=== PATIENT | female | born 1985 | race Caucasian/White ===

== ENCOUNTER 2016-12-17 17:31 | Emergency (ER) | payer OTHER ==
[~2016-12-17] VITALS: Ht 162.6 cm; Wt 110.0 kg
[~2016-12-17 17:31] MED LIST: IBUP-1152 PO; PREN1TAB69 PO
[2016-12-17 17:34] VITALS: BP 145/88; PULSE 118; RESP 22; O2SAT 99
--- NOTE | 2016-12-17 17:58 | ED.REPORT ---
HPI-Abd Pain F Under 39 Date of Service Dec 17, 2016 ED Provider: Dr. Kuldeep Mathis D.O. A healthy 31 year old female presents to the ED with waxing and waning lower left-sided pleuritic chest pain onset 1100 this morning. The pain began in the epigastric region yesterday, then moved to the LUQ of the abdomen, and then into the chest today. The patient also reports dizziness, lightheadedness, nausea, vomiting, and diarrhea over the past two days. She denies cough, urinary symptoms, fever, or shortness of breath. Nursing Notes Stated Complaint: CHEST PAIN Chief Complaint: Female Abdominal Pain Nursing Notes Reviewed: Yes Allergies: Coded Allergies: Penicillins (Verified Allergy, Severe, anaphylaxis, 12/17/16) Scheduled IBUPROFEN-Expunged Drug, Do Not Renew! (IBUPROFEN-Expunged Drug, Do Not Renew!) 800 Mg Tablet 800 MG PO q8 hours prn TAKE WITH FOOD Vit/Fe Fumarate/Fa-Expunged Drug, Do (-Expunged Drug, Do Not Renew!) 1 Each Tablet 1 EACH PO DAILY General Time Seen by MD: 17:57 Chief Complaint Other (Chest Pain) Hx Obtained From: Patient Arrived By: Walk-in Sudden in Onset?: Yes Onset Occurred: 5 - 8 hours ago Symptom Duration: Waxes and wanes Location: : Epigastric (Resolved): LUQ (Lower chest) Quality: Painful Severity: Current: Moderate Severity: Maximum: Moderate Associated with: Reports: Diarrhea, Nausea, Vomiting, Denies: Fever Exacerbated by: Deep breath Pertinent Negative: Relieved by nothing Recent Healthcare: No recent doctor visit Past Medical History Past Medical History Posterior intravaginal laceration requiring repair Past Surgical History Tonsillectomy and adenoidectomy Smoking History Unknown if Ever Smoker Social History Other Social History: Ambulatory Status Independent Review of Systems Review of Systems Note: - Urinary symptoms Constitutional: Denies: Fever Respiratory: Reports: Pleuritic pain, Denies: Non-productive cough, Shortness of breath Cardiovascular: Reports: Chest pain (Lower left) GI: Reports: Abdominal pain (epigastric and LUQ, resolved), Diarrhea, Nausea, Vomiting Complete sys rev & neg: except as marked. Neurologic: Reports: Dizziness, Lightheaded Physical Exam Initial Vital Signs Vital Signs (First) Date Time Temp Pulse Resp B/P Pulse Ox O2 Delivery O2 Flow Rate FiO2 12/17/16 17:34 36.8 118 22 145/88 99 Room Air Initial VS: Reviewed Head / Eyes: Atraumatic, Normocephalic ENT: Conjunctiva normal, No scleral icterus Skin: Warm, Dry Neurologic: Alert, Oriented, Nonfocal Psychiatric: Mood/affect normal, Behavior normal, Normal thought content General/Constitutional: Awake, Alert Distress / Hydration: Positive: Distress mild Behavior: Positive: Tearful Respiratory / Chest: Breath sounds = bilat, No respiratory distress Diminished Breath Sounds: Positive: Decreased bilateral Cardiovascular: Regular rhythm, Heart sounds NL Heart Rate / Rhythm: Positive: Tachycardia Abdomen: Soft, Non-tender Interpretation & Diagnostics URINE DIPSTICK: 1.015 sp gravity 5 pH Normal Glucose Normal Urobilinogen Otherwise Negative URINE TEST: Negative Lab Results Interpretation Result Diagram: 12/17/16 1805 12/17/16 1805 Test 12/17/16 18:05 12/17/16 20:44 12/17/16 22:50 White Blood Count 14.6th/mm3 (3.8-10.1) Red Blood Count 4.75mil/mm3 (3.90-5.20) Hemoglobin 14.3g/dL (12.0-15.6) Hematocrit 41.2% (35.0-46.0) Mean Corpuscular Volume 86.7fL (81-100) Mean Corpuscular Hemoglobin 30.1pg (27.0-35.0) Mean Corpuscular Hemoglobin Concent 34.7% (32.0-37.0) Red Cell Distribution Width 12.5% (12.3-15.4) Platelet Count 233bil/L (150-400) Neutrophils (%) (Auto) 71.2% (40-74) Lymphocytes (%) (Auto) 22.5% (14-46) Monocytes (%) (Auto) 5.4% (4-12) Eosinophils (%) (Auto) 0.5% (0-5) Basophils (%) (Auto) 0.1% (0-3) Hold Purple Top Tube Received (Received) D-Dimer < 0.5mg/L (<0.50) Hold Blue Top Tube Received (Received) Sodium Level 136mEq/L (134-144) Potassium Level 3.9mEq/L (3.5-5.2) Chloride Level 100mEq/L (97-108) Carbon Dioxide Level 21mmol/L (18-29) Blood Urea Nitrogen 15mg/dL (6-20) Creatinine 0.79mg/dL (0.57-1.00) Estimat Glomerular Filtration Rate 121mL/min (>59) Glucose Level 112mg/dL (60-99) Calcium Level 9.2mg/dL (8.5-10.1) Total Bilirubin 0.4mg/dL (0.0-1.2) Aspartate Amino Transf (AST/SGOT) 21U/L (0-50) Alanine Aminotransferase (ALT/SGPT) 18U/L (0-32) Alkaline Phosphatase 78U/L (25-150) Total Protein 7.7g/dL (6.4-8.4) Albumin 4.3g/dL (3.4-5.0) Lipase 31U/L (13-60) HCG Beta Subunit < 0.500mIU/mL Hold [place] Top Tube Received (Received) Hold Gagnon Top Tube Received (Received) Urine Color Yellow (YELLOW) Urine Appearance Clear (CLEAR,HAZY) Urine pH 5.5 (5.0-8.0) Urine Specific [place] 1.015 (1.003-1.035) Urine Protein Negativemg/dL (NEG,TRACE) Urine Glucose (UA) Negativemg/dL (NEGATIVE) Urine Ketones Negativemg/dL (NEGATIVE) Urine Occult Blood Negative (NEGATIVE) Urine Nitrite Negative (NEGATIVE) Urine Bilirubin Negative (NEGATIVE) Urine Urobilinogen Normalmg/dL (NORMAL) Urine Leukocyte Esterase Negative (NEGATIVE) Urine RBC 0-2/hpf (0-2) Urine WBC 0-5/hpf (0-5) Urine Epithelial Cells Moderate/hpf (NONE-MOD) Urine Crystals None seen (NONE SEEN) Urine Bacteria Few/hpf (NONE-FEW) Urine Hyaline Casts None/lpf (NONE) Urine Granular Casts None seen (NONE SEEN) Urine Waxy Casts None seen (NONE SEEN) Urine Red Blood Cell Casts None seen (NONE SEEN) Urine White Blood Cell Casts None seen (NONE SEEN) Urine Mucus None seen (None Seen) Urine Trichomonas None seen (NONE SEEN) Urine Yeast None (NONE SEEN) Urinalysis Comment None Urine Culture Reflexed Not indicated Troponin T 0.010ug/L (0.0-0.011) ECG Interpretation ECG Interpretation: Sinus rhythm rate 74 Time: 19:05 Interpreted by: ED physician X-Ray Chest Interpretation Chest Xray Interpretation: IMPRESSION: No acute process. Dictated by: Inna Osullivan M.D. on 12/17/2016 at 18:40 View: Portable, 1 view Interpretation / Wet Read by: Interpret - Radiologist CT Abd / Pelvis Interpretation IMPRESSION: 1. No explanation for midline abdominal pain. 2. Normal appendix. Dictated by: Inna Osullivan M.D. on 12/17/2016 at 20:29 Study type: Abdominal CT IV contrast Interpretation / Wet Read by: Interpret - Radiologist Re-Eval/Medical Decision Med Decision/Clinical Course Left upper quadrant pain associated with diarrhea. Negative d-dimer. Pulmonary emboli very unlikely. NV ruled out biochemically and with EKG. Acute abdomen rule out based on CT. She was medicated looked and felt much better. Comfortable for discharge with close outpatient follow-up. Source of Hx: Old records Re-Evaluation/Progress : Time of Eval: 22:10 Patient Status: Condition improved Re-Evaluation/Progress Note: Discussed with patient x-ray, CT, and lab results, diagnosis, and plan for discharge. Follow-up and return to the ER instructions given. Patient agrees with plan for care and all questions were addressed. Counseled Regarding: Diagnosis, Lab results, Need for follow-up, When/why to return to ED Discharge & Departure Shift Change Sign-Out Response to Therapy: Improved Primary Impression: Abdominal pain Abdominal location: left upper quadrant Qualified Code: R10.12 - Left upper quadrant pain Additional Impression: Diarrhea Disposition: Home Discharge Condition All VS Reviewed: Yes Condition: Improved Patient Instructions: Acute Abdominal Pain (ED), Acute Diarrhea (ED) Additional Instructions: The CAT scan of your abdomen showed possible gallstones but otherwise normal. Nothing to explain the left upper quadrant pain. Your heart blood tests were normal. Your blood clot blood test was negative. Your EKG is reassuring. The cause of your pain is most likely related to the diarrhea. Do not drive tonight. Take 1-2 Hathaway every 6 hours as needed for severe pain. Do not drive or drink alcohol or consume acetaminophen while taking the Hathaway. I would like you to set up follow-up with your primary care physician. If you develop any pain in the right upper quadrant or mid abdomen consider having ultrasound of your gallbladder. Otherwise clear liquid diet for 24 hours. Call your doctor in the morning for follow-up. Return if any problems or any worsening symptoms. Referrals: Reynaldo Espino MD (PCP) Scribe Attestation Portions of this note were transcribed by Kathryn Farr. I, Dr. Mathis, personally performed the history, physical exam, and medical decision-making; I reviewed and confirmed the accuracy of the information in the transcribed note. Signed by: Diego Encarnacion, 12/18/2016, 01:15 copies to: Reynaldo Espino MD, Todd P DO Dec 17, 2016 17:58 KATHRYN FARR Dec 17, 2016 18:16
[2016-12-17] MEDS ORDERED: 0.9% Sodium Chloride 1,000 ML IV ONE (18:10)
[2016-12-17 18:40] LABS: BASOPHILS % (AUTO) 0.1 % (0-3); EOSINOPHILS % (AUTO) 0.5 % (0-5); MONOCYTES % (AUTO) 5.4 % (4-12); Mean Corpuscular Hemoglobin 30.1 pg (27.0-35.0); Mean Corpuscular Volume 86.7 fL (81-100); NEUTROPHILS % (AUTO) 71.2 % (40-74); Platelet Count 233 bil/L (150-400)
[2016-12-17] MEDS: HYDROmorphone 0.5 mg/0.5 mL iSecure Syringe IVPUSH PRN ×2 (18:42→20:47)
[2016-12-17] MEDS: Ondansetron 2 mg/mL 2 mL Inj IVPUSH PRN ×2 (18:42→19:45)
--- NOTE | 2016-12-17 18:42 | DRSVH ---
PROCEDURE: X-RAY CHEST ONE VIEW, PORTABLE ([id number]) INDICATIONS: chest pain TECHNIQUE: One view of the chest was acquired. COMPARISON: None. FINDINGS: Surgical changes and devices: None. Lungs and pleura: No pleural effusions or pneumothorax. Lungs are clear. Mediastinum: Mediastinal contours appear normal. Heart size is normal. Bones and chest wall: No suspicious bony lesions. Overlying soft tissues appear unremarkable. IMPRESSION: No acute process. Dictated by: Inna Osullivan M.D. on 12/17/2016 at 18:40 Approved by: Inna Osullivan M.D. on 12/17/2016 at 18:40
[2016-12-17 19:08] LABS: Lipase 31 U/L (13-60)
--- NOTE | 2016-12-17 20:32 | DRSVH ---
PROCEDURE: CT ABDOMEN AND PELVIS WITH CONTRAST ([id number]) INDICATIONS: severe midline abdominal pain TECHNIQUE: After the administration of intravenous contrast, 5 mm thick sections acquired from the diaphragm to the symphysis. 5 mm coronal and sagittal reformats were acquired. For radiation dose reduction, the following was used: automated exposure control, adjustment of mA and/or kV according to patient siz e. COMPARISON: None. FINDINGS: Image quality: Excellent. ABDOMEN: Lung bases: Lung bases are clear. Heart size is normal. Solid organs: Liver and spleen are normal in size and enhancement. Gallbladder demonstrates layerin g high density material dependently. Biliary system is non dilated. Pancreas enhances normally. No adrenal nodules. Kidneys demonstrate normal size and enhancement, without hydronephrosis. Peritoneum and bowel: Bowel loops demonstrate normal wall thickness and caliber. No free fluid or a ir. Normal appendix. Nodes and vessels: No retroperitoneal or mesenteric adenopathy by size criteria. Aorta and inferior vena cava are normal in size. Miscellaneous: No ventral hernias. PELVIS: Genitourinary: Bladder wall thickness is normal. Miscellaneous: No inguinal hernias or adenopathy. Bones: No suspicious bony lesions. No vertebral body compression fractures. IMPRESSION: 1. No explanation for midline abdominal pain. 2. Normal appendix. Dictated by: Inna Osullivan M.D. on 12/17/2016 at 20:29 Approved by: Inna Osullivan M.D. on 12/17/2016 at 20:30
[2016-12-17 21:00] LABS: APPEARANCE,URINE CLEAR (CLEAR,HAZY); COLOR,URINE YELLOW (YELLOW); OCCULT BLOOD,URINE NEGATIVE (NEGATIVE); PH,URINE 5.5 (5.0-8.0); UROBILINOGEN,URINE NORMAL (NORMAL)
[2016-12-17] MEDS ORDERED: _HYDROcodone/APAP 5-325 mg Tablet PO PRN (21:10)
[2016-12-17] MEDS ORDERED: _Ondansetron ODT 4 mg Tablet PO PRN (21:10)
[2016-12-17 23:55] VITALS: BP 111/56; PULSE 77; RESP 18; O2SAT 97
== END 2016-12-17 23:59 | disposition home or self-care (01) ==
LOC: SED 17:31
DX: R10.12 Left upper quadrant pain (principal); R19.7 Diarrhea, unspecified; Z88.0 Allergy status to penicillin
CPT/HCPCS: 36415; 71010; 74177; 80053; 81000; 81025; 83690; 84484; 84702; 85025; 85379; 93005; 96361; 96374; 96375; 96376; 99285; J1170; J2405; J7030; Q9967